=== PATIENT | female | born 1980 | race Caucasian/White ===

== ENCOUNTER 2016-07-29 16:54 | Emergency (ER) | payer OTHER ==
[2016-07-29 17:14] VITALS: BP 110/63
--- NOTE | 2016-07-29 17:24 | ER Document Report ---
ED Medical Screen (RME) - General Chief Complaint: Arm Pain Stated Complaint: LEFT ARM/ELBOW PAIN Time seen by provider: 17:21 Mode of Arrival: Ambulatory Information source: Patient Notes: 36-year-old female presents to ED for left lower arm pain for a week. Patient denies any injuries. She has a small red spot just below her elbow and states she can feel a knot in her antecubital and if you touch either spot it is extremely painful. She was at the neurologist today and they suggested she come to the emergency room. She is on control patch. Consult to Dr. Rodriguez with the assessment we'll order a Doppler of the left upper extremity. I have greeted and performed a rapid initial assessment of this patient. A comprehensive ED assessment and evaluation of the patient, analysis of test results and completion of medical decision making process will be conducted by an additional ED providers. Physical Exam - Vital signs Vitals: Temp Pulse Resp BP Pulse Ox 97.8 F 86 16 110/63 100 07/29/16 17:13 07/29/16 17:13 07/29/16 17:13 07/29/16 17:13 07/29/16 17:13 Course - Vital Signs Vital signs: Temp Pulse Resp BP Pulse Ox 97.8 F 86 16 110/63 100 07/29/16 17:13 07/29/16 17:13 07/29/16 17:13 07/29/16 17:13 07/29/16 17:13
--- NOTE | 2016-07-29 20:28 | XCELERA REPORT ---
[address] [address] Upper Extremity Venous Evaluation Name: ABRAHAN GONZALEZ Age: 36 yrs Gender: Female : 1980 Patient Status: Preadmit Patient Location: ER Study Date: 07/29/2016 07:09 PM Procedure: Unilateral duplex scan of the left upper extremity veins was performed, including responses to compression and other maneuvers. Reason For Study: pain swelling left upper extremity hormone patch Ordering Physician: RAAD VELOZ Performed By: Jacinta Ferrara Left Sided Venous Evaluation Abnormal vessel filling,no compression or Colour flow in the Basilic vein from mid arm to mid forearm Otherwise normal flow in deep veins. Critical Findings Called in to Tammy in the ER at 2030 hours. Interpretation Summary No duplex evidence of DVT or obstruction in the left upper extremity. Quite extensive superficial phlebitis noted. : RAAD VELOZ > Hi Yeager
--- NOTE | 2016-07-29 21:13 | ER Document Report ---
ED General - General Chief Complaint: Arm Pain Stated Complaint: LEFT ARM/ELBOW PAIN Mode of Arrival: Ambulatory TRAVEL OUTSIDE OF THE [place] IN LAST 30 DAYS: No - HPI Patient complains to provider of: left arm pain Notes: Patient coming in for evaluation of left arm pain. Patient has red area is very painful and tender on the air forearm underneath the medial epicondyle of the elbow neck is to the inside of the arm passively elbow. Patient states ongoing for the last few days. Patient states no trauma no fevers or chills no nausea no vomiting. Patient states prostate 6 months ago started on control - Related Data Allergies/Adverse Reactions: No Known Allergies Allergy (Unverified 07/29/16 17:23) Past Medical History - General Information source: Patient - Social History Smoking Status: Unknown if Ever Smoked Chew tobacco use (# tins/day): No Frequency of alcohol use: None Drug Abuse: None Family History: None Patient has suicidal ideation: No Patient has homicidal ideation: No Renal/ Medical History: Denies: Hx Peritoneal Dialysis Review of Systems - Review of Systems Constitutional: No symptoms reported EENT: No symptoms reported Cardiovascular: No symptoms reported Respiratory: No symptoms reported Gastrointestinal: No symptoms reported Genitourinary: No symptoms reported Female Genitourinary: No symptoms reported Musculoskeletal: Other - Left arm pain Skin: No symptoms reported Hematologic/Lymphatic: No symptoms reported Neurological/Psychological: No symptoms reported Physical Exam - Vital signs Vitals: Temp Pulse Resp BP Pulse Ox 97.8 F 86 16 110/63 100 07/29/16 17:13 07/29/16 17:13 07/29/16 17:13 07/29/16 17:13 07/29/16 17:13 Interpretation: Normal - General General appearance: Appears well, Alert - HEENT Head: Normocephalic, Atraumatic Eyes: Normal Pupils: PERRL - Respiratory Respiratory status: No respiratory distress Chest status: Nontender Breath sounds: Normal Chest palpation: Normal - Cardiovascular Rhythm: Regular Heart sounds: Normal auscultation Murmur: No - Abdominal Inspection: Normal Distension: No distension Bowel sounds: Normal Tenderness: Nontender Organomegaly: No organomegaly - Back Back: Normal, Nontender - Extremities General upper extremity: Normal color, Normal ROM, Normal temperature, Other - Patient with a small area approximately 6 cm x 5 cm on the left forearm warm to touch painful to touch with palpable vein consistent with superficial thrombophlebitis General lower extremity: Normal inspection, Nontender, Normal color, Normal ROM , Normal temperature, Normal weight bearing - Neurological Neuro grossly intact: Yes Cognition: Normal Orientation: AAOx4 Candace Coma Scale Eye Opening: Spontaneous Priddy Coma Scale Verbal: Oriented Priddy Coma Scale Motor: Obeys Commands Candace Coma Scale Total: 15 Speech: Normal Motor strength normal: LUE, RUE, LLE, RLE Sensory: Normal - Psychological Associated symptoms: Normal affect, Normal mood - Skin Skin Temperature: Warm Skin Moisture: Dry Skin Color: Normal Course - Re-evaluation Re-evalutation: 07/29/16 23:53 A Doppler was performed showing extensive thrombophlebitis. Patient was encouraged to apply warm compresses take anti-inflammatory medications. Also encouraged patient to have a discussion with her IT DESKTOP SUPPORT TECHNICIAN about her control choice. Patient will be discharged home - Vital Signs Vital signs: Temp Pulse Resp BP Pulse Ox 97.8 F 86 16 110/63 100 07/29/16 17:13 07/29/16 17:13 07/29/16 17:13 07/29/16 17:13 07/29/16 17:13 Discharge - Discharge Clinical Impression: Superficial phlebitis Condition: Good Disposition: HOME, SELF-CARE Instructions: Superficial Phlebitis ([facility]), Anti-Inflammatory Medication ([facility]) Additional Instructions: You can apply warm compresses to the area to aid pain relief. Anti- inflammatory medication should be her go to for pain relief. You may also take medication prescribed. Return to ER symptoms worsen. Prescriptions: Hydrocodone Bit/Acetaminophen [Hydrocodon-Acetaminophen 5-325] 1 each PO Q6 #20 tablet Naproxen [Naprosyn 250 mg Tablet] 250 mg PO DAILY PRN #20 tablet PRN Reason: Referrals: SANAM HOFFMAN FNP [Primary Care Provider] - Follow up in 3-5 days
== END 2016-07-29 21:30 | disposition home or self-care (01) ==
LOC: ER 16:54
DX: I80.9 Phlebitis and thrombophlebitis of unspecified site (principal); M79.602 Pain in left arm; M25.522 Pain in left elbow
CPT/HCPCS: 93971; 99283

== ENCOUNTER → 2016-08-05 | Outpatient (CLI) | payer OTHER | LOC: RAD 14:57 | PROVIDERS: ATTEND Specialist | DX: G35 Multiple sclerosis (principal) | CPT/HCPCS: 72156; A9577 ==

== ENCOUNTER 2016-08-11 11:41 | Emergency (ER) | payer OTHER ==
--- NOTE | 2016-08-11 11:56 | ER Document Report ---
ED Medical Screen (RME) - General Stated Complaint: HEADACHE, STIFF NECK Mode of Arrival: Wheelchair Information source: Patient Notes: Patient states she had an LP 4 days ago. Patient was having the study done to check for MS. Patient was recently started on xarelto, but only took one dose on Thursday. Thursday patient was seen at the [facility] for continued headache and stiff neck after the lumbar puncture. No fever. Patient has been taking Fioricet. Patient reports vomiting today. Patient states that the symptoms to be worse today. hx: DVT left upper extremity, factor V Leiden TRAVEL OUTSIDE OF THE [place] IN LAST 30 DAYS: No - Related Data Allergies/Adverse Reactions: No Known Allergies Allergy (Unverified 07/29/16 17:23) Past Medical History Renal/ Medical History: Denies: Hx Peritoneal Dialysis Physical Exam - Neurological Cognition: Normal [place] Coma Scale Eye Opening: Spontaneous Candace Coma Scale Verbal: Oriented [place] Coma Scale Motor: Obeys Commands [place] Coma Scale Total: 15
[2016-08-11] MEDS ORDERED: NORMAL SALINE 1000 ML 2,000 ML IV ONE (14:12)
[2016-08-11] MEDS ORDERED: PROMETHAZINE HCL INJ 25 MG/1 ML VIAL IV ONE (14:13)
--- NOTE | 2016-08-11 15:14 | ER Document Report ---
ED General Pain - General Chief Complaint: Headache Stated Complaint: HEADACHE, STIFF NECK Mode of Arrival: Wheelchair Information source: Patient Notes: Patient is a 36-year-old female who presents today with a headache and some complaints of neck pain only when she stands up. Patient supposedly for the last few months has had some intermittent numbness mostly to the left side. She was seen and evaluated by her primary care physician on had a lumbar puncture by the radiologist Dr. Vidal. She states the next day, being Thursday she developed a frontal headache with neck stiffness. She states the headache is constant but the neck pain is only when she stands upright. She states if she lays down the neck pain subsided completely and the headache improved dramatically. She states that she went to the [facility] Thursday and they gave her fluids. They would not do a blood patch at that time. Patient also supposedly had a superficial phlebitis diagnosed in the left arm over the last 2 weeks. She was treated with NSAIDs and then followed up with her primary care physician. 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 Patient was started on Xarelto on Thursday. She had already had a headache and the neck stiffness at that time. She states she only took one dose of this will also Thursday morning. She states they would not do the blood patch at [facility] on Thursday secondary to this medication starting, despite only a 1 time dose. Patient denies any blurry vision, weakness or numbness of the legs currently, fevers, or vomiting. TRAVEL OUTSIDE OF THE [place] IN LAST 30 DAYS: No - HPI Onset: Other - See above Onset/Duration: Gradual Quality of pain: Other - See above Severity: Moderate Pain Level: 2 Context: Other - See above Associated symptoms: Other - See above Exacerbated by: Other - See above Relieved by: Other - See above Similar symptoms previously: Yes Recently seen / treated by doctor: Yes - Related Data Allergies/Adverse Reactions: No Known Allergies Allergy (Unverified 08/11/16 11:55) Past Medical History - General Information source: Patient - Social History Smoking Status: Never Smoker Chew tobacco use (# tins/day): No Frequency of alcohol use: Occasional Drug Abuse: None Family History: None Patient has suicidal ideation: No Patient has homicidal ideation: No Renal/ Medical History: Denies: Hx Peritoneal Dialysis Review of Systems - Review of Systems Constitutional: denies: Fever EENT: denies: Eye discharge, Nose congestion, Nose discharge Cardiovascular: denies: Chest pain, Palpitations, Dizziness, Lightheaded Respiratory: denies: Short of breath Gastrointestinal: denies: Vomiting Genitourinary: denies: Dysuria Musculoskeletal: denies: Leg swelling Skin: Other - no hives. denies: Rash Neurological/Psychological: Other - no slurred speech -: Yes All other systems reviewed and negative Physical Exam - Vital signs Vitals: Temp Pulse Resp BP Pulse Ox 97.4 F 80 18 124/84 100 08/11/16 11:53 08/11/16 11:53 08/11/16 11:53 08/11/16 11:53 08/11/16 11:53 Notes: Reviewed vital signs and nursing note as charted by RN. CONSTITUTIONAL: Alert and oriented and responds appropriately to questions. Well -appearing; well-nourished HEAD: Normocephalic; atraumatic EYES: PERRL; full extraocular range of motion. ENT: Normal nose; no rhinorrhea; moist mucous membranes; pharynx without lesions noted NECK: Supple without meningismus; nontender to full range of motion while the patient is laying flat. No swelling or erythema to the neck. CARD: Regular rate and rhythm; no murmurs, no clicks, no rubs, no gallops; symmetric distal pulses RESP: Normal chest excursion without splinting or tachypnea; breath sounds clear and equal bilaterally ABD/GI: Normal bowel sounds; non-distended; soft, non-tender BACK: The back appears normal and is non-tender to palpation, there is no CVA tenderness EXT: Normal ROM in all joints; non-tender to palpation; no cyanosis, no effusions, no edema SKIN: Normal color for age and race; warm; dry; good turgor; capillary refill < 2 seconds; no acute lesions noted NEURO: CN II through XII are intact. Patient has 5 out of 5 bilateral upper and lower extremity strength with sensation intact to light touch. PSYCH: The patient's mood and manner are appropriate. Grooming and personal hygiene are appropriate. Course - Re-evaluation Re-evalutation: 08/11/16 15:11 Given the history and physical examination I have called the anesthesiologist addictions recovery specialist and spoken directly to . I've explained the full history and physical examination a one-time dose of Xarelto Thursday, and the patient's lumbar puncture and chief complaint. He states that he is still uncomfortable today being 3 days out from the Xarelto tablet. He recommends that I obtain a CBC and that he states he will see the patient in outpatient surgery tomorrow and perform a blood patch at that time if the patient's headache has not improved. Patient has no focal neurological deficits, no neck stiffness on my examination , actually no neck pain when laying flat, no fevers or vomiting, and therefore I do not believe the patient requires any imaging at this time. I believe subarachnoid hemorrhage or acute spinal infection to be extraordinarily unlikely. I will provide Phenergan intravenously as well as 2 L of fluid. 08/11/16 16:33 Headache is better. No change in neurologic examination status. CBC as hemolyzed. She states that she does need to go to [facility] her children but while hours to perform a redraw. We need this only for the procedure tomorrow. I have called the nursing shuttle preparation supervisor and she has arranged the appointment for tomorrow. Patient will be discharged home with strict return precautions, I will refill her Fioricet which she states is very helpful, and have her come for the blood patch tomorrow as scheduled. - Vital Signs Vital signs: Temp Pulse Resp BP Pulse Ox 99.0 F 73 16 113/63 99 08/11/16 15:54 08/11/16 15:54 08/11/16 15:54 08/11/16 15:54 08/11/16 15:54 - Laboratory Result Diagrams: 08/11/16 15:45 Discharge - Discharge Clinical Impression: Post-lumbar puncture headache Condition: Good Disposition: HOME, SELF-CARE Additional Instructions: Come back immediately for any worsening headache, fever, vomiting, weakness or numbness, or any other acute problems. Please make sure that you go to the outpatient surgical center at [address] [place] [address] tomorrow at noon, right behind the emergency department. Prescriptions: Butalb/Acetaminophen/Caffeine [Fioricet (50-325-40 mg) Tablet] 1 - 2 tab PO Q4H #20 tab
[2016-08-11 16:08] LABS: PARTIAL THROMBOPLASTIN TIME 27.6 SEC (23.5-35.8); PROTHROMBIN TIME 13.2 SEC (11.4-15.4)
[2016-08-11] MEDS ORDERED: BUTALB/ACETAMINOPHEN/CAFFEINE 1 TAB EACH PO ONE (16:57)
[2016-08-11 17:11] LABS: ABSOLUTE BASOPHILS # (AUTO) 0.1 10^3/uL (0.0-0.2); ABSOLUTE EOSINOPHILS # (AUTO) 0.1 10^3/uL (0.0-0.6); ABSOLUTE LYMPHOCYTES (AUTO) 2.7 10^3/uL (0.5-4.7); ABSOLUTE MONOCYTES (AUTO) 0.4 10^3/uL (0.1-1.4); ABSOLUTE NEUT (AUTO) 3.5 10^3/uL (1.7-8.2); EOSINOPHILS % (AUTO) 1.8 % (0-6); HEMATOCRIT 33.7 % (36.0-47.0); HEMOGLOBIN 11.5 g/dL (12.0-15.5); HGB HCT DIFFERENCE 0.8; LYMPHOCYTES % (AUTO) 40.2 % (13-45); MEAN CORPUSCULAR HEMOGLOBIN 32.2 pg (27.0-33.4); MEAN CORPUSCULAR HGB CONC 34.1 g/dL (32.0-36.0); MEAN CORPUSCULAR VOLUME 94 fl (80-97); MONOCYTES % (AUTO) 5.4 % (3-13); RED BLOOD COUNT 3.58 10^6/uL (3.72-5.28); RED CELL DISTRIBUTION WIDTH 12.5 % (11.5-14.0); SEGMENTED NEUTROPHILS % (AUTO) 51.6 % (42-78); WHITE BLOOD COUNT 6.8 10^3/uL (4.0-10.5)
[2016-08-11 17:35] VITALS: BP 118/80
== END 2016-08-11 17:05 | disposition home or self-care (01) ==
LOC: ER 11:41
DX: G97.1 Other reaction to spinal and lumbar puncture (principal); R51 Headache; M43.6 Torticollis; M54.2 Cervicalgia
CPT/HCPCS: 99284; 96361; 96374; 36415; 85025; 85610; 85730; J3490; J2550; J7030